=== PATIENT | male | born 1980 | race Caucasian/White ===

== ENCOUNTER 2017-10-13 21:28 | Emergency (ER) | payer OTHER, SELFPAY ==
[2017-10-13] MEDS ORDERED: Acetaminophen 500 MG TAB ONE (21:48)
== END 2017-10-13 21:52 | disposition home or self-care (01) ==
LOC: NAV ERS 21:28
DX: J20.9 Acute bronchitis, unspecified (principal); F17.210 Nicotine dependence, cigarettes, uncomplicated; Z71.6 Tobacco abuse counseling
CPT/HCPCS: 99284